=== PATIENT | male | born 2000 | race African-American/Black ===

== ENCOUNTER 2021-10-04 19:58 | Observation (INO) ==
[2021-10-04] MEDS ORDERED: methylPREDNISolone SOD SUC 125 MG/2 ML VIAL IV STA (20:23)
[2021-10-04] MEDS ORDERED: ALBUTEROL/IPRATROPIUM 3 ML NEB RESP TX STA ×3 (20:24→22:20)
[2021-10-04] MEDS ORDERED: SODIUM CHLORIDE 0.9% 1,000 ML IV STA (20:24)
[2021-10-04] MEDS ORDERED: KETOROLAC 30 MG/1 ML VIAL IV STA (20:25)
[2021-10-04 21:09] LABS: Basophils # 0.1 10*3/uL (0.0-0.2); Basophils % 0.7 % (0.0-0.8); Eosinophils # 0.3 10*3/uL (0.0-0.87); Eosinophils % 2.6 % (0.00-10.9); Hematocrit 43.3 VOL% (42.0-52.0); Hemoglobin 14.6 GM/DL (14.0-18.0); Immature Granulocytes % 0.3 %; Immature Granulocytes Absolute 0.03 #; Lymphocytes # 0.8 10*3/uL (1.4-4.0); Lymphocytes % 7.3 % (21.2-54.2); Mean Corpuscular HGB Conc 33.7 GM/DL (32-36); Mean Corpuscular Volume 86.9 FL (87-102); Mean Platelet Volume 9.5 FL (9.6-12.0); Monocytes % 3.4 % (1.7-12.7); Neutrophils % 85.7 % (38.7-73.9); Platelet Count 321 T/CUMM (130-400); Red Blood Count 4.98 MC/CUMM (3.8-5.5); Red Cell Distribution Width 12.2 % (9.3-17.3); White Blood Count 10.8 T/CUMM (4-12)
[2021-10-04 21:15] LABS: Bilirubin,Urine Negative (Negative); Blood, Urine Negative (Negative); Glucose,Urine (UA) Negative (Negative); Ketones,Urine 5 mg/dL (Negative); Mucus,Urine Occasional /LPF (Occasional); Nitrite,Urine Negative (Negative); Protein,Urine Negative; RBC,Urine 3 /HPF (0-4); Urine Appearance CLEAR (Clear); Urine Color Yellow (Yellow); Urine Urobilinogen < 2.0 EU/DL (0.2-1.0)
[2021-10-04 21:40] LABS: Albumin 3.9 G/DL (3.4-5.0); Bilirubin,Total 0.6 MG/DL (0.20-1.00); Calcium 9.3 MG/DL (8.5-10.1); Osmolality,Calculated 273.7 MOS/KG (273-304); Potassium 3.9 MMOL/L (3.5-5.1); Total Protein 8.2 G/DL (6.4-8.2)
[2021-10-05] MEDS ORDERED: DEXTROSE 50% 25 GM/50 ML VIAL IV PRN (00:18)
[2021-10-05] MEDS ORDERED: GLUCAGON 1 MG VIAL IM PRN (00:18)
[2021-10-05] MEDS ORDERED: ACETAMINOPHEN 325 MG TABLET PO PRN (00:19)
[2021-10-05] MEDS ORDERED: SIMETHICONE CHEW 125 MG TABLET PO PRN (00:19)
[2021-10-05] MEDS ORDERED: MONTELUKAST 10 MG TABLET PO SCH (00:30)
[2021-10-05] MEDS: ALBUTEROL 2.5 MG/3 ML NEB RESP TX SCH ×2 (01:18→09:27)
[2021-10-05] MEDS ORDERED: guaiFENesin 200 MG/10 ML UDCUP PO PRN (01:21)
[2021-10-05] MEDS ORDERED: KETOROLAC 30 MG/1 ML VIAL IV PRN (01:26)
[2021-10-05] MEDS: methylPREDNISolone SOD SUC 125 MG/2 ML VIAL IV SCH ×2 (02:21→09:10)
[2021-10-05] MEDS: FLUTICASONE/SALMETEROL 500-50 DISKUS 14 DOSE INH SCH ×2 (02:21→09:11)
[2021-10-05] MEDS: ONDANSETRON 4 MG/2 ML VIAL IV PRN ×2 (02:33→09:26)
[2021-10-05 05:55] LABS: Basophils % 0.1 % (0.0-0.8); Eosinophils % 0.1 % (0.00-10.9); Hematocrit 39.5 VOL% (42.0-52.0); Immature Granulocytes % 0.4 %; Immature Granulocytes Absolute 0.03 #; Lymphocytes # 0.4 10*3/uL (1.4-4.0); Lymphocytes % 5.2 % (21.2-54.2); Mean Corpuscular HGB Conc 32.9 GM/DL (32-36); Monocytes % 0.4 % (1.7-12.7); Neutrophils % 93.8 % (38.7-73.9); Platelet Count 315 T/CUMM (130-400); Red Blood Count 4.49 MC/CUMM (3.8-5.5); Red Cell Distribution Width 12.1 % (9.3-17.3); White Blood Count 7.5 T/CUMM (4-12)
[2021-10-05 06:26] LABS: Anisocytosis Slight; Giant Platelets Few; Lymphocytes 7 % (20-55); Platelet Estimate Normal; Segmented Neutrophils 93 % (50-85); Total Cells Counted 100
[2021-10-05 06:43] LABS: Calcium 9.4 MG/DL (8.5-10.1); Osmolality,Calculated 276.7 MOS/KG (273-304); Potassium 3.7 MMOL/L (3.5-5.1); Thyroid Stimulating Hormone 0.09 uIU/ml (0.358-3.74)
[2021-10-05] MEDS ORDERED: MAGNESIUM SULF RIDER 4 GM/100 ML PREMIX IV PRN (07:45)
[2021-10-05] MEDS ORDERED: MAGNESIUM SULF RIDER 2 GM/50 ML PREMIX IV PRN (07:45)
[2021-10-05 08:23] LABS: Free T4 (Free Thyroxine) 1.13 NG/DL (0.76-1.46)
[2021-10-05] MEDS ORDERED: BENZONATATE 100 MG CAPSULE PO SCH (09:00)
[2021-10-05 11:35] VITALS: BP 108/68
[2021-10-06] MEDS ORDERED: predniSONE 20 MG TABLET PO SCH (09:00)
== END 2021-10-05 13:45 | disposition home or self-care (01) ==
LOC: N.ED 19:58 → N.EDINP 19:58 → N.3E 10-05 01:37
PROVIDERS: ADMIT Internal Medicine; ATTEND Internal Medicine